=== PATIENT | female | born 1970 | race Caucasian/White ===

== ENCOUNTER 2018-04-24 11:37 | Emergency (ER) | payer OTHER ==
[~2018-04-24] VITALS: Ht 152.4 cm; Wt 65.8 kg
[2018-04-24] MEDS ORDERED: ORPHENADRINE C100 MG PO (15:01)
[2018-04-24] MEDS ORDERED: KETO10TA2 PO (15:01)
== END 2018-04-24 15:20 | disposition home or self-care (01) ==
LOC: ER 11:37
DX: S86.811A Strain of other muscle(s) and tendon(s) at lower leg level, right leg, initial encounter (principal); X50.3XXA Overexertion from repetitive movements, initial encounter; Y93.89 Activity, other specified; Y92.89 Other specified places as the place of occurrence of the external cause; Y99.8 Other external cause status